=== PATIENT | female | born 1995 | race Caucasian/White ===

== ENCOUNTER → 2019-10-27 | Outpatient (CLI) | payer BC, OTHER | LOC: BHSO 12:56 | DX: F33.1 Major depressive disorder, recurrent, moderate (principal) ==

== ENCOUNTER → 2019-12-12 | Outpatient (CLI) | payer BC, OTHER | LOC: BHSO 12:59 | DX: F41.1 Generalized anxiety disorder (principal) ==

== ENCOUNTER → 2019-12-24 | Outpatient (CLI) | payer BC, OTHER | LOC: BHSO 13:50 | DX: F90.0 Attention-deficit hyperactivity disorder, predominantly inattentive type (principal) | CPT/HCPCS: G0463 ==

== ENCOUNTER → 2019-12-25 | Outpatient (CLI) | payer BC, OTHER | LOC: BHSO 14:55 | DX: F33.0 Major depressive disorder, recurrent, mild (principal) ==

== ENCOUNTER → 2020-01-08 | Outpatient (CLI) | payer BC, OTHER | LOC: BHSO 14:58 | DX: F33.0 Major depressive disorder, recurrent, mild (principal) ==

== ENCOUNTER → 2020-02-06 | Outpatient (CLI) | payer BC, OTHER | LOC: BHSO 15:58 | DX: F33.0 Major depressive disorder, recurrent, mild (principal) ==

== ENCOUNTER → 2020-02-26 | Outpatient (CLI) | payer BC, OTHER | LOC: BHSO 12:57 | DX: F33.0 Major depressive disorder, recurrent, mild (principal) ==

== ENCOUNTER → 2020-03-11 | Outpatient (CLI) | payer BC, OTHER | LOC: BHSO 15:39 | DX: F90.0 Attention-deficit hyperactivity disorder, predominantly inattentive type (principal) | CPT/HCPCS: G0463 ==

== ENCOUNTER → 2020-03-12 | Outpatient (CLI) | payer BC, OTHER | LOC: BHSO 15:00 | DX: F33.0 Major depressive disorder, recurrent, mild (principal) ==

== ENCOUNTER → 2020-05-28 | Outpatient (CLI) | payer BC, OTHER | LOC: BHSO 14:38 | DX: F33.41 Major depressive disorder, recurrent, in partial remission (principal) | CPT/HCPCS: G0463 ==